=== PATIENT | male | born 1995 | race Two or more races ===

== ENCOUNTER 2018-01-09 02:40 | Emergency (ER) | payer OTHER ==
[~2018-01-09 02:40] MED LIST: LIDODERM 5% P1 PATCH TD; NAPROSYN500 MG PO; NOHOMEMEDS
[2018-01-09 03:03] LABS: BASOPHIL (%) 0.4 % (0-1); BASOPHIL COUNT 0.1 K/uL (0-0.1); EOSINOPHIL (%) 0.4 % (0-5); EOSINOPHIL COUNT 0.1 K/uL (0-0.3); HEMATOCRIT 41.6 % (38.0-50.0); HEMOGLOBIN 14.9 G/DL (12.5-16.6); IMMATURE GRANULOCYTE (%) 0.3 % (0.0-0.7); LYMPHOCYTE (%) 22.4 % (15-42); LYMPHOCYTE COUNT 3.3 K/uL (1.0-2.8); MCH 30.8 PG (29.0-34.0); MCHC 35.8 G/DL (30.0-36.0); MONOCYTE (%) 8.7 % (3-12); MONOCYTE COUNT 1.3 K/uL (0-0.8); NEUTROPHIL (%) 67.8 % (45-76); NEUTROPHIL COUNT 10.1 K/uL (1.8-6.4); NRBC (%) 0.1 /100 WBC (0-0); PLATELET COUNT 254 K/uL (156-360); RBC DIS.WIDTH-CV 12.7 % (11.8-14.6); RBC DIS.WIDTH-SD 39.7 % (39-53); RED BLOOD COUNT 4.84 M/uL (4.00-5.50); WHITE BLOOD COUNT 14.9 K/uL (4.1-10.2)
[2018-01-09 03:17] LABS: AMYLASE 47 IU/L (1-118); CHLORIDE 100 mEq/L (99-109); POTASSIUM 3.3 mEq/L (3.7-5.4); SODIUM 138 mEq/L (136-147)
[2018-01-09 03:18] LABS: GLUCOSE 109 mg/dL (70-99)
[2018-01-09 03:22] LABS: SERUM ETHYL ALCOHOL < 10 mg/dL
[2018-01-09 03:23] LABS: UREA NITROGEN (BUN) 15 mg/dL (9-23)
[2018-01-09 03:25] LABS: LIPASE 12 U/L (1.0-51.0)
[2018-01-09 03:28] LABS: GFR ESTIMATE (CALCULATED) > 59 mL/min/ (58.99-99999)
[2018-01-09] MEDS ORDERED: NORCO 5/3251 TABLET PO (05:54)
[2018-01-09] MEDS ORDERED: KEFLEX500 MG PO (05:54)
== END 2018-01-09 07:43 | disposition home or self-care (01) ==
LOC: EME 02:40 → EDBD 02:40 → EME 07:43
PROVIDERS: Emergency Medicine
DX: S11.91XA Laceration without foreign body of unspecified part of neck, initial encounter (principal); S41.011A Laceration without foreign body of right shoulder, initial encounter; X99.1XXA Assault by knife, initial encounter; Z23 Encounter for immunization; Z88.2 Allergy status to sulfonamides
CPT/HCPCS: 70360; 70496; 70498; 71045; 76882; 80048; 81003; 82150; 83690; 85025; 86850; 86900; 86901; 93971; 99281; 99285; G0480; J0690; J2405; J3010